=== PATIENT | male | born 1970 | race Caucasian/White ===

== ENCOUNTER 2018-03-19 13:56 | Emergency (ER) | payer OTHER ==
[~2018-03-19] VITALS: Ht 172.7 cm; Wt 114.1 kg
[2018-03-19] MEDS ORDERED: BUSPAR 15MG TAB15 MG PO (14:17)
[2018-03-19] MEDS ORDERED: ZOLOFT25 M1 PO (14:17)
[2018-03-19] MEDS ORDERED: DIOVAN HCT PO (14:17)
[2018-03-19] MEDS ORDERED: METOPROLOL SUC100 M1 PO (14:18)
[2018-03-19] MEDS ORDERED: ASPIR LOW81 MG PO (14:18)
[2018-03-19] MEDS ORDERED: SERTRALINE HYD100 MG PO (14:18)
[2018-03-19] MEDS ORDERED: NEXIUM 40MG40 MG (14:23)
[2018-03-19 14:46] LABS: EOS # 0.1 (0.04-0.40); EOS % 2.4 % (0.0-4.0); HEMATOCRIT 40.2 % (42.0-52.0); HEMOGLOBIN 13.3 g/dL (13.5-18.0); MEAN CELL VOLUME 80 fl (78-100); MEAN CORPUSCULAR HEMOGLOBIN 27 pg (27-31); MEAN CORPUSCULAR HGB CONC 33 g/dL (33-37); MEAN PLATELET VOLUME 8.8 fl (7.4-10.4); MONO # 0.4 (0.20-0.80); NEU # 3.7 (1.40-6.50); PLATELET COUNT 200 K/mm3 (130-400); WHITE BLOOD COUNT 5.3 K/mm3 (4.8-10.8)
[2018-03-19 15:03] LABS: ALBUMIN 4.1 g/dL (3.5-5.0); BUN/CREATININE RATIO 20.6 (6.0-26.0); CALCIUM 9.1 mg/dL (8.4-10.2); POTASSIUM 4.3 mmol/L (3.6-5.0); TOTAL BILIRUBIN 0.4 mg/dL (0.2-1.3); TOTAL PROTEIN 7.7 g/dL (6.3-8.2)
[2018-03-19 16:36] LABS: URINE APPEARANCE CLEAR; URINE BILIRUBIN NEGATIVE (NEGATIVE); URINE BLOOD NEGATIVE (NEGATIVE); URINE COLOR YELLOW; URINE KETONE NEGATIVE (NEGATIVE); URINE LEUKOCYTE ESTERASE NEGATIVE (NEGATIVE); URINE NITRATE NEGATIVE (NEGATIVE); URINE PROTEIN(semi-quant) NEGATIVE (NEGATIVE); URINE UROBILINOGEN NORMAL (NORMAL); URINE WBC 0-1 /hpf (0-3)
[2018-03-19 17:24] VITALS: BP 144/83
== END 2018-03-19 17:24 | disposition home or self-care (01) ==
LOC: ED 13:56
PROVIDERS: Nurse Practitioner Primary Care
DX: K21.9 Gastro-esophageal reflux disease without esophagitis (principal); E11.9 Type 2 diabetes mellitus without complications; I10 Essential (primary) hypertension; Z79.82 Long term (current) use of aspirin; Z79.899 Other long term (current) drug therapy

== ENCOUNTER 2018-10-04 07:54 | Emergency (ER) | payer SELFPAY ==
[~2018-10-04 07:54] MED LIST: ASPIR LOW81 MG PO; BUSPAR 15MG TAB15 MG PO; DIOVAN HCT PO; METOPROLOL SUC100 M1 PO; NEXIUM 40MG40 MG; SERTRALINE HYD100 MG PO; ZOLOFT25 M1 PO
[2018-10-04] MEDS ORDERED: METOPROLOL TAR100 M1 PO (08:15)
[2018-10-04] MEDS ORDERED: ASPIR LOW81 MG PO (08:16)
[2018-10-04] MEDS ORDERED: METFORMIN HYD1000 MG PO (08:16)
[2018-10-04] MEDS ORDERED: ACID REDUCER 1150 MG PO (08:16)
[2018-10-04] MEDS ORDERED: VALSARTAN160 M1 PO (08:16)
[2018-10-04 08:41] LABS: EOS # 0.2 (0.04-0.40); EOS % 2.9 % (0.0-4.0); HEMATOCRIT 40.5 % (42.0-52.0); HEMOGLOBIN 13.4 g/dL (13.5-18.0); LYMPH# 1.2 (1.50-4.00); MEAN CELL VOLUME 83 fl (78-100); MEAN CORPUSCULAR HEMOGLOBIN 27 pg (27-31); MEAN CORPUSCULAR HGB CONC 33 g/dL (33-37); MEAN PLATELET VOLUME 8.8 fl (7.4-10.4); MONO # 0.5 (0.20-0.80); NEU # 3.3 (1.40-6.50); PLATELET COUNT 172 K/mm3 (130-400); RED CELL DISTRIBUTION WIDTH 12.7 % (11.5-14.5)
[2018-10-04 08:54] LABS: ALBUMIN 4.3 g/dL (3.5-5.0); CALCIUM 9.4 mg/dL (8.4-10.2); POTASSIUM 4.8 mmol/L (3.6-5.0); TOTAL BILIRUBIN 0.4 mg/dL (0.2-1.3); TOTAL PROTEIN 7.5 g/dL (6.3-8.2)
[2018-10-04] MEDS ORDERED: CARAFATE 1GM1 G PO (09:30)
[2018-10-04 09:38] VITALS: BP 147/82
== END 2018-10-04 09:39 | disposition home or self-care (01) ==
LOC: ED 07:54
PROVIDERS: Physician Assistant
DX: K21.9 Gastro-esophageal reflux disease without esophagitis (principal); I10 Essential (primary) hypertension; E11.9 Type 2 diabetes mellitus without complications; Z79.84 Long term (current) use of oral hypoglycemic drugs; Z79.82 Long term (current) use of aspirin; Z98.890 Other specified postprocedural states

== ENCOUNTER → 2018-10-15 | Outpatient (CLI) | payer SELFPAY ==
[2018-10-04 09:38] VITALS: BP 147/82
[~2018-10-15] MED LIST changes: +ACID REDUCER 1150 MG PO; +CARAFATE 1GM1 G PO; +METFORMIN HYD1000 MG PO; +METOPROLOL TAR100 M1 PO; +VALSARTAN160 M1 PO
[2018-10-15 17:15] LABS: RED BLOOD COUNT 5.11 M/mm3 (4.20-5.60); RED CELL DISTRIBUTION WIDTH 12.9 % (11.5-14.5); WHITE BLOOD COUNT 7.1 K/mm3 (4.8-10.8)
[2018-10-15 17:46] LABS: ALBUMIN 4.7 g/dL (3.5-5.0); POTASSIUM 4.8 mmol/L (3.6-5.0); TOTAL BILIRUBIN 0.4 mg/dL (0.2-1.3); TOTAL PROTEIN 8.4 g/dL (6.3-8.2)
== END ==
LOC: LAB 16:55
PROVIDERS: Family Medicine
DX: E11.9 Type 2 diabetes mellitus without complications (principal); Z00.00 Encounter for general adult medical examination without abnormal findings; E66.9 Obesity, unspecified

== ENCOUNTER → 2018-10-19 | Outpatient (CLI) | payer SELFPAY ==
[2018-10-04 09:38] VITALS: BP 147/82
== END ==
LOC: CARDLAB 11:14 → CARDREHAB 14:46
DX: R07.9 Chest pain, unspecified (principal); E11.9 Type 2 diabetes mellitus without complications; I10 Essential (primary) hypertension; Z87.891 Personal history of nicotine dependence

== ENCOUNTER → 2019-08-15 | Outpatient (CLI) | payer SELFPAY | LOC: RAD 15:16 | DX: R05 Cough (principal) ==

== ENCOUNTER → 2019-10-08 | Outpatient (CLI) | payer SELFPAY ==
[2019-10-08 17:25] LABS: EOS # 0.2 (0.04-0.40); EOS % 2.4 % (0.0-4.0); HEMATOCRIT 39.2 % (42.0-52.0); HEMOGLOBIN 12.9 g/dL (13.5-18.0); LYMPH# 1.7 (1.50-4.00); MEAN CELL VOLUME 83 fl (78-100); MEAN CORPUSCULAR HEMOGLOBIN 27 pg (27-31); MEAN CORPUSCULAR HGB CONC 33 g/dL (33-37); MEAN PLATELET VOLUME 8.7 fl (7.4-10.4); MONO # 0.5 (0.20-0.80); NEU # 5.4 (1.40-6.50); PLATELET COUNT 268 K/mm3 (130-400); RED BLOOD COUNT 4.72 M/mm3 (4.20-5.60)
[2019-10-08 17:26] LABS: ALBUMIN 4.4 g/dL (3.5-5.0); POTASSIUM 4.3 mmol/L (3.5-5.1)
[2019-10-08 17:29] LABS: TOTAL PROTEIN 7.8 g/dL (6.4-8.3)
[2019-10-08 17:30] LABS: TOTAL BILIRUBIN 0.2 mg/dL (0.2-1.2)
== END ==
LOC: LAB 17:16
PROVIDERS: Family Medicine
DX: I10 Essential (primary) hypertension (principal); E11.9 Type 2 diabetes mellitus without complications

== ENCOUNTER → 2020-07-14 | Outpatient (CLI) | payer BC ==
[2020-07-17 12:37] LABS: ANA SCREEN with REFLEX Negative (Negative)
== END ==
LOC: LAB 16:38
PROVIDERS: Family Medicine
DX: E11.9 Type 2 diabetes mellitus without complications (principal); M25.50 Pain in unspecified joint

== ENCOUNTER → 2020-09-11 | Outpatient (CLI) | payer BC | LOC: RAD 16:54 | DX: M25.521 Pain in right elbow (principal) ==

== ENCOUNTER → 2020-10-06 | Outpatient (CLI) | payer BC ==
[2020-10-06 14:54] LABS: ALBUMIN 4.3 g/dL (3.5-5.0)
[2020-10-06 14:55] LABS: POTASSIUM 4.5 mmol/L (3.5-5.1)
[2020-10-06 14:56] LABS: CALCIUM 9.1 mg/dL (8.3-10.5)
[2020-10-06 14:57] LABS: TOTAL PROTEIN 8.1 g/dL (6.4-8.3)
[2020-10-06 14:59] LABS: TOTAL BILIRUBIN 0.3 mg/dL (0.2-1.2)
== END ==
LOC: LAB 14:34
PROVIDERS: Family Medicine
DX: E11.9 Type 2 diabetes mellitus without complications (principal)

== ENCOUNTER → 2020-11-16 | Outpatient (CLI) | payer BC | LOC: RAD 08:03 | DX: R07.81 Pleurodynia (principal) ==

== ENCOUNTER → 2021-10-18 | Outpatient (CLI) | payer BC ==
[2021-10-18 12:55] LABS: BASO # 0.03 K/mm3 (0.02-0.10); EOS # 0.15 K/mm3 (0.04-0.40); EOS % 2.2 % (0.0-4.0); HEMATOCRIT 38.3 % (42.0-52.0); HEMOGLOBIN 12.7 g/dL (13.5-18.0); LYMPH# 1.45 K/mm3 (1.50-4.00); MEAN CELL VOLUME 82 fl (78-100); MEAN CORPUSCULAR HEMOGLOBIN 27 pg (27-31); MEAN CORPUSCULAR HGB CONC 33 g/dL (33-37); MEAN PLATELET VOLUME 8.6 fl (7.4-10.4); MONO # 0.36 K/mm3 (0.20-0.80); NEU # 4.65 K/mm3 (1.40-6.50); PLATELET COUNT 174 K/mm3 (130-400); RED BLOOD COUNT 4.68 M/mm3 (4.20-5.60); WHITE BLOOD COUNT 6.7 K/mm3 (4.8-10.8)
[2021-10-18 12:57] LABS: ALBUMIN 4.2 g/dL (3.5-5.0); POTASSIUM 4.5 mmol/L (3.5-5.1)
[2021-10-18 12:58] LABS: CALCIUM 9.5 mg/dL (8.3-10.5)
[2021-10-18 13:00] LABS: TOTAL PROTEIN 7.6 g/dL (6.4-8.3)
[2021-10-18 13:02] LABS: TOTAL BILIRUBIN 0.4 mg/dL (0.2-1.2)
== END ==
LOC: LAB 12:19
PROVIDERS: Family Medicine
DX: Z00.00 Encounter for general adult medical examination without abnormal findings (principal); Z12.11 Encounter for screening for malignant neoplasm of colon; E78.5 Hyperlipidemia, unspecified; F41.9 Anxiety disorder, unspecified; I10 Essential (primary) hypertension; K21.9 Gastro-esophageal reflux disease without esophagitis; E66.9 Obesity, unspecified; G47.33 Obstructive sleep apnea (adult) (pediatric); E11.9 Type 2 diabetes mellitus without complications

== ENCOUNTER → 2022-11-01 | Outpatient (CLI) | payer BC ==
[2022-11-01 10:12] LABS: BASO # 0.04 K/mm3 (0.02-0.10); EOS # 0.18 K/mm3 (0.04-0.40); EOS % 3.2 % (0.0-4.0); HEMATOCRIT 39.6 % (42.0-52.0); HEMOGLOBIN 13.4 g/dL (13.5-18.0); LYMPH# 1.51 K/mm3 (1.50-4.00); MEAN CELL VOLUME 84 fl (78-100); MEAN CORPUSCULAR HEMOGLOBIN 28 pg (27-31); MEAN CORPUSCULAR HGB CONC 34 g/dL (33-37); MEAN PLATELET VOLUME 8.4 fl (7.4-10.4); MONO # 0.39 K/mm3 (0.20-0.80); NEU # 3.45 K/mm3 (1.40-6.50); PLATELET COUNT 161 K/mm3 (130-400); RED BLOOD COUNT 4.72 M/mm3 (4.20-5.60); RED CELL DISTRIBUTION WIDTH 11.7 % (11.5-14.5); WHITE BLOOD COUNT 5.6 K/mm3 (4.8-10.8)
[2022-11-01 10:21] LABS: ALBUMIN 4.2 g/dL (3.5-5.0); POTASSIUM 4.5 mmol/L (3.5-5.1)
[2022-11-01 10:22] LABS: CALCIUM 9.4 mg/dL (8.3-10.5)
[2022-11-01 10:24] LABS: TOTAL PROTEIN 7.5 g/dL (6.4-8.3)
[2022-11-01 10:25] LABS: TOTAL BILIRUBIN 0.4 mg/dL (0.2-1.2)
== END ==
LOC: LAB 09:48
PROVIDERS: Family Medicine
DX: Z00.00 Encounter for general adult medical examination without abnormal findings (principal); Z12.11 Encounter for screening for malignant neoplasm of colon; E78.5 Hyperlipidemia, unspecified; F41.9 Anxiety disorder, unspecified; I10 Essential (primary) hypertension; K21.9 Gastro-esophageal reflux disease without esophagitis; E66.9 Obesity, unspecified; G47.33 Obstructive sleep apnea (adult) (pediatric); E11.9 Type 2 diabetes mellitus without complications; E55.9 Vitamin D deficiency, unspecified; M06.9 Rheumatoid arthritis, unspecified

== ENCOUNTER → 2023-04-26 | Outpatient (CLI) | payer BC | LOC: LAB 08:10 | DX: J01.90 Acute sinusitis, unspecified (principal); R05.9 Cough, unspecified ==

== ENCOUNTER → 2023-05-08 | Outpatient (CLI) | payer BC | LOC: LAB 17:01 | DX: F41.9 Anxiety disorder, unspecified (principal); I10 Essential (primary) hypertension; K21.9 Gastro-esophageal reflux disease without esophagitis; E66.9 Obesity, unspecified; G47.33 Obstructive sleep apnea (adult) (pediatric); E11.9 Type 2 diabetes mellitus without complications; E78.5 Hyperlipidemia, unspecified; M17.0 Bilateral primary osteoarthritis of knee ==

== ENCOUNTER → 2023-09-28 | Outpatient (CLI) | payer BC | LOC: LAB 08:49 | DX: F52.21 Male erectile disorder (principal) ==

== ENCOUNTER → 2024-07-09 | Outpatient (CLI) | payer BC ==
[2024-07-09 07:26] LABS: ALBUMIN 4.5 g/dL (3.5-5.0)
[2024-07-09 07:28] LABS: CALCIUM 9.7 mg/dL (8.3-10.5)
[2024-07-09 07:29] LABS: TOTAL PROTEIN 7.6 g/dL (6.4-8.3)
[2024-07-09 07:31] LABS: TOTAL BILIRUBIN 0.5 mg/dL (0.2-1.2)
== END ==
LOC: LAB 07:02
PROVIDERS: Nurse Practitioner
DX: E11.9 Type 2 diabetes mellitus without complications (principal); N39.43 Post-void dribbling; R53.83 Other fatigue; M79.671 Pain in right foot; Z82.61 Family history of arthritis

== ENCOUNTER → 2024-09-16 | Outpatient (CLI) | payer BC | LOC: RAD 08:02 | DX: M25.531 Pain in right wrist (principal) ==

== ENCOUNTER 2024-09-29 20:04 | Emergency (ER) | payer BC ==
[~2024-09-29] VITALS: Ht 175.3 cm; Wt 114.1 kg
[2024-09-29] MEDS ORDERED: OZEMPIC0.25 MG/02 SQ (20:13)
[2024-09-29] MEDS ORDERED: LOSARTAN POTAS100 MG PO (20:13)
[2024-09-29] MEDS ORDERED: CELECOXIB200 M1 PO (20:14)
[2024-09-29] MEDS ORDERED: DEXCOM G7 SENS1 EACH MC (20:14)
[2024-09-29] MEDS ORDERED: FLOMAX0.4 MG PO (20:14)
[2024-09-29 20:26] LABS: BASO # 0.01 K/mm3 (0.02-0.10); EOS % 1.6 % (0.0-4.0); HEMATOCRIT 39.1 % (42.0-52.0); HEMOGLOBIN 13.4 g/dL (13.5-18.0); LYMPH# 1.59 K/mm3 (1.50-4.00); MEAN CELL VOLUME 86 fl (78-100); MEAN CORPUSCULAR HEMOGLOBIN 30 pg (27-31); MEAN CORPUSCULAR HGB CONC 34 g/dL (33-37); MEAN PLATELET VOLUME 8.5 fl (7.4-10.4); MONO # 0.38 K/mm3 (0.20-0.80); NEU # 4.18 K/mm3 (1.40-6.50); PLATELET COUNT 151 K/mm3 (130-400); RED BLOOD COUNT 4.54 M/mm3 (4.20-5.60); WHITE BLOOD COUNT 6.3 K/mm3 (4.8-10.8)
[2024-09-29 20:33] LABS: ALBUMIN 4.3 g/dL (3.5-5.0)
[2024-09-29 20:35] LABS: CALCIUM 9.2 mg/dL (8.3-10.5)
[2024-09-29 20:36] LABS: TOTAL PROTEIN 7.8 g/dL (6.4-8.3)
[2024-09-29 20:38] LABS: TOTAL BILIRUBIN 0.3 mg/dL (0.2-1.2)
[2024-09-29 20:47] LABS: URINE WBC 0 /hpf (0-3)
[2024-09-29 20:56] LABS: PH-URINE 5.5 (5.0 - 8.0); URINE APPEARANCE CLEAR (CLEAR); URINE COLOR YELLOW (YELLOW); URINE PROTEIN(semi-quant) NEGATIVE (NEGATIVE)
[2024-09-29 20:57] LABS: URINE BILIRUBIN NEGATIVE (NEGATIVE); URINE BLOOD NEGATIVE (NEGATIVE); URINE GLUCOSE NEGATIVE (NEGATIVE); URINE KETONE NEGATIVE (NEGATIVE); URINE LEUKOCYTE ESTERASE NEGATIVE (NEGATIVE); URINE MUCUS PRESENT (NOT PRESENT); URINE NITRATE NEGATIVE (NEGATIVE)
[2024-09-29 21:10] VITALS: BP 136/71
== END 2024-09-29 21:10 | disposition home or self-care (01) ==
LOC: ED 20:04
PROVIDERS: Family Medicine
DX: R53.81 Other malaise (principal); E11.649 Type 2 diabetes mellitus with hypoglycemia without coma; E66.01 Morbid (severe) obesity due to excess calories; Z79.82 Long term (current) use of aspirin